=== PATIENT | female | born 1955 | race Caucasian/White ===

== ENCOUNTER 2019-03-05 16:25 | Emergency (ER) | payer SELFPAY ==
[~2019-03-05] VITALS: Ht 157.5 cm; Wt 90.7 kg
[2019-03-05 17:53] LABS: BASOPHILS % (AUTO) 0 % (0-10); EOSINOPHILS # (AUTO) 0.2 10^3/uL (0.0-0.3); EOSINOPHILS % (AUTO) 2 % (0-10); HEMATOCRIT 44 % (35-52); HEMOGLOBIN 14.7 G/DL (11.5-16.0); LYMPHOCYTES # (AUTO) 1.9 X 10^3 (1.0-4.0); LYMPHOCYTES % (AUTO) 22 % (12-44); MEAN CORPUSCULAR HEMOGLOBIN 27 PG (25-34); MEAN CORPUSCULAR HGB CONC 34 G/DL (32-36); MEAN CORPUSCULAR VOLUME 80 FL (80-99); MEAN PLATELET VOLUME 9.6 FL (7.4-10.4); MONOCYTES # (AUTO) 0.8 X 10^3 (0.0-1.0); MONOCYTES % (AUTO) 9 % (0-12); NEUTROPHILS # (AUTO) 5.9 X 10^3 (1.8-7.8); NEUTROPHILS % (AUTO) 67 % (42-75); PLATELET COUNT 321 10^3/uL (130-400); RED CELL DISTRIBUTION WIDTH 14.3 % (10.0-14.5); WHITE BLOOD COUNT 8.8 10^3/uL (4.3-11.0)
[2019-03-05 17:58] LABS: BILIRUBIN,URINE NEGATIVE (NEGATIVE); CLARITY,URINE CLEAR; COLOR,URINE YELLOW; GLUCOSE, URINE (UA) NEGATIVE (NEGATIVE); KETONES,URINE NEGATIVE (NEGATIVE); LEUKOCYTE ESTERASE ,URINE NEGATIVE (NEGATIVE); NITRITE,URINE NEGATIVE (NEGATIVE); PH,URINE 5.5 (5-9); PROTEIN,URINE NEGATIVE (NEGATIVE)
[2019-03-05 18:05] LABS: ALANINE AMINOTRANSFERASE 38 U/L (0-55); ALBUMIN 4.4 GM/DL (3.2-4.5); ALKALINE PHOSPHATASE 71 U/L (40-136); BILIRUBIN,TOTAL 0.9 MG/DL (0.1-1.0); BUN/CREATININE RATIO 11; CALCIUM 9.2 MG/DL (8.5-10.1); CARBON DIOXIDE 21 MMOL/L (21-32); CHLORIDE 107 MMOL/L (98-107); CREATININE SERUM 0.82 MG/DL (0.60-1.30); GFR ESTIMATED > 60; GLUCOSE 105 MG/DL (70-105); LIPASE 18 U/L (8-78); POTASSIUM 3.7 MMOL/L (3.6-5.0); SODIUM 140 MMOL/L (135-145)
--- NOTE | 2019-03-05 18:05 | ED Abdominal Pain ---
General Chief Complaint: Abdominal/GI Problems Stated Complaint: LOW PAIN PAIN; HEARTBURN Nursing Triage Note: PT AMBULATE TO TRIAGE WITH C/O ABD PAIN PAIN STARTING X3 DAYS AGO. PT REPORTS PAIN IN LEFT LOWER QUAD AND RADIATING AROUND LEFT SIDE TO HER LEFT BACK. PT REPORTS N/V AND ACID REFLUX. PT REPORTS RECENT MOVE FROM [facility] AND THAT WHILE THERE HAD A BACTERIAL INFECTION IN HER STOMACH THAT WAS TREATED OVER 2 MONTHS ENDING APPROX 3 MONTHS AGO. Sepsis Screen: No Definite Risk Source of Information: Patient, Family (son) Exam Limitations: Language Barrier (son speaks fluent Nauruan) History of Present Illness Date Seen by Provider: Mar 05, 2019 Time Seen by Provider: 18:05 Initial Comments 63 yo female patient presents with c/o epigastric and LLQ pain x 3 days. LLQ pain radiates around the left flank into the left low back. Also reports reflux, N/V. Recently moved from [facility] to be with family. Reports being treated with antibiotics for a "stomach infection" for 2 months, but is not sure what antibiotics she was on. Antibiotics were completed 3 months ago. Timing/Duration: 3-4 Days, Intermittent Severity/Quality: Burning (epigastric), Sharp (LLQ, left flank and left LB) Activities at Onset: None Modifying Factors: Worsens With Eating (epigastric pain is worse with eating. denies eating spicy or fatty foods.), Worsens With Palpation Allergies and Home Medications Allergies Coded Allergies: No Known Drug Allergies (Unverified , 03/05/19) Home Medications Famotidine 20 Mg Tablet, 20 MG PO BID Prescribed by: ANATOLY HORAN on 03/05/191929 Ondansetron 4 Mg Tab.rapdis, 4 MG PO Q6H PRN for NAUSEA/VOMITING Prescribed by: ANATOLY HORAN on 03/05/191929 Patient Home Medication List Home Medication List Reviewed: Yes Review of Systems Review of Systems Constitutional: No chills, No diaphoresis, No dizziness, No fever, No malaise EENTM: No Symptoms Reported Respiratory: Denies Cough, Denies Orthopnea, Denies Shortness of Air, Denies Wheezing Cardiovascular: Denies Chest Pain, Denies Edema, Denies Irregular Heart Rate, Denies Lightheadedness, Denies Palpitations, Denies Syncope Gastrointestinal: See HPI, Abdomen Distended (epigastric bloating), Abdominal Pain; Denies Blood Streaked Stools; Constipated (chronic constipation); Denies Diarrhea, Denies Difficulty Swallowing; Nausea; Denies Poor Appetite, Denies Poor Fluid Intake, Denies Rectal Bleeding; Vomiting Genitourinary: Denies Burning, Denies Discharge, Denies Frequency; Flank Pain (left flank); Denies Hematuria Musculoskeletal: see HPI, back pain Skin: no symptoms reported Psychiatric/Neurological: No Symptoms Reported Endocrine: No Symptoms Reported All Other Systems Reviewed Negative Unless Noted: Yes (Negative excepted noted.) Past Gaqfbru-Pqgsfo-Rxvvbp Hx Past Med/Social Hx: Reviewed Nursing Past Med/Soc Hx Patient Social History Alcohol Use: Rarely Uses Recreational Drug Use: No Smoking Status: Never a Smoker 2nd Hand Smoke Exposure: No Recent Foreign Travel: Yes (PT RECENTLY MOVED FROM [facility]) Contact w/Someone Who Travel: Yes Recent Infectious Disease Expo: Yes (BACTERIAL INFECTION IN STOMACH APPROX 5 MONTHS AGO WITH [place] LASTING 2 MONTHS) Recent Hopitalizations: No Physical Abuse: No Sexual Abuse: No Mistreated: No Fear: No Seasonal Allergies Seasonal Allergies: No Past Medical History Surgeries: No Respiratory: No Cardiac: Yes Hypotension Neurological: No Genitourinary: No Gastrointestinal: Yes ("stomach infection") Chronic Constipation Musculoskeletal: No Endocrine: No HEENT: No Cancer: No Psychosocial: No Integumentary: No Blood Disorders: No Family Medical History Reviewed Nursing Family Hx No Pertinent Family Hx Physical Exam Vital Signs Vital Signs - First Documented 03/05/19 03/05/19 16:32 19:45 Temp 37.4 Pulse 86 Resp 17 B/P (MAP) 164/104 (124) Pulse Ox 98 O2 Delivery Room Air Capillary Refill : Less Than 3 Seconds Height/Weight/BMI Height: '" Weight: lbs. oz. kg; 36.00 BMI Method: General Appearance: WD/WN, no apparent distress HEENT: PERRL/EOMI, pharynx normal Neck: supple, normal inspection Respiratory: lungs clear, normal breath sounds, no respiratory distress, no accessory muscle use Cardiovascular: normal peripheral pulses, regular rate, rhythm, no edema, no gallop, no murmur Peripheral Pulses: 2+ Dorsalis Pedis (R), 2+ Left Dors-Pedis (L), 2+ Radial Pulses (R), 2+ Radial Pulses (L) Gastrointestinal: normal bowel sounds, soft, no organomegaly, no pulsatile mass; No distended; guarding (mild guarding to the epigastrum and LLQ); No rebound; tenderness (epigastric, LLQ, and left flank); No mass Extremities: no pedal edema, no calf tenderness, normal capillary refill Back: normal inspection, no vertebral tenderness; No CVA tenderness (R); CVA tenderness (L) Neurologic/Psychiatric: alert, normal mood/affect, oriented x 3 Skin: normal color, warm/dry Progress/Results/Core Measures Results/Orders Lab Results Laboratory Tests Test 03/05/19 17:40 03/05/19 17:50 Range/Units White Blood Count 8.8 4.3-11.0 10^3/uL Red Blood Count 5.44 4.35-5.85 10^6/uL Hemoglobin 14.7 11.5-16.0 G/DL Hematocrit 44 35-52 % Mean Corpuscular Volume 80 80-99 FL Mean Corpuscular Hemoglobin 27 25-34 PG Mean Corpuscular Hemoglobin Concent 34 32-36 G/DL Red Cell Distribution Width 14.3 10.0-14.5 % Platelet Count 321 130-400 10^3/uL Mean Platelet Volume 9.6 7.4-10.4 FL Neutrophils (%) (Auto) 67 42-75 % Lymphocytes (%) (Auto) 22 12-44 % Monocytes (%) (Auto) 9 0-12 % Eosinophils (%) (Auto) 2 0-10 % Basophils (%) (Auto) 0 0-10 % Neutrophils # (Auto) 5.9 1.8-7.8 X 10^3 Lymphocytes # (Auto) 1.9 1.0-4.0 X 10^3 Monocytes # (Auto) 0.8 0.0-1.0 X 10^3 Eosinophils # (Auto) 0.2 0.0-0.3 10^3/uL Basophils # (Auto) 0.0 0.0-0.1 10^3/uL Sodium Level 140 135-145 MMOL/L Potassium Level 3.7 3.6-5.0 MMOL/L Chloride Level 107 98-107 MMOL/L Carbon Dioxide Level 21 21-32 MMOL/L Anion Gap 12 5-14 MMOL/L Blood Urea Nitrogen 9 7-18 MG/DL Creatinine 0.82 0.60-1.30 MG/DL Estimat Glomerular Filtration Rate > 60 BUN/Creatinine Ratio 11 Glucose Level 105 70-105 MG/DL Calcium Level 9.2 8.5-10.1 MG/DL Corrected Calcium 8.9 8.5-10.1 MG/DL Total Bilirubin 0.9 0.1-1.0 MG/DL Aspartate Amino Transf (AST/SGOT) 42 H 5-34 U/L Alanine Aminotransferase (ALT/SGPT) 38 0-55 U/L Alkaline Phosphatase 71 40-136 U/L Total Protein 8.0 6.4-8.2 GM/DL Albumin 4.4 3.2-4.5 GM/DL Lipase 18 8-78 U/L Urine Color YELLOW Urine Clarity CLEAR Urine pH 5.5 5-9 Urine Specific Butler >=1.030 1.016-1.022 Urine Protein NEGATIVE NEGATIVE Urine Glucose (UA) NEGATIVE NEGATIVE Urine Ketones NEGATIVE NEGATIVE Urine Nitrite NEGATIVE NEGATIVE Urine Bilirubin NEGATIVE NEGATIVE Urine Urobilinogen 0.2 < = 1.0 MG/DL Urine Leukocyte Esterase NEGATIVE NEGATIVE Urine RBC (Auto) TRACE-I NEGATIVE Urine RBC NONE /HPF Urine WBC NONE /HPF Urine Crystals NONE /LPF Urine Bacteria NEGATIVE /HPF Urine Casts NONE /LPF Urine Mucus LARGE H /LPF Urine Culture Indicated NO My Orders Orders - ANATOLY HORAN Ed Iv/Invasive Line Start (03/05/19 17:44) Cbc With Automated Diff (03/05/19 17:44) Comprehensive Metabolic Panel (03/05/19 17:44) Lipase (03/05/19 17:44) Ua Culture If Indicated (03/05/19 17:44) Ct Abd/Pelvis Wo(Kidney Stone) (03/05/19 18:19) Ondansetron Injection (Zofran Injectio (03/05/19 18:30) Ketorolac Injection (Toradol Injection) (03/05/19 18:19) Ns Iv 1000 Ml (Sodium Chloride 0.9%) (03/05/19 18:19) Famotidine Injection (Pepcid Injection) (03/05/19 18:21) Medications Given in ED Current Medications Medications Dose Ordered Sig/Nahum Route Start Time Stop Time Status Last Admin Dose Admin Ondansetron HCl 4 mg ONCE ONCE IVP 03/05/19 18:30 03/05/19 18:31 DC 03/05/19 18:26 4 MG Sodium Chloride 1,000 ml @ 0 mls/hr Q0M ONCE IV 03/05/19 18:19 03/05/19 18:21 DC 03/05/19 18:25 1,000 MLS/HR Vital Signs/I&O 03/05/19 03/05/19 16:32 19:45 Temp 37.4 Pulse 86 88 Resp 17 18 B/P (MAP) 164/104 (124) 121/56 Pulse Ox 98 O2 Delivery Room Air Room Air Blood Pressure Mean: 124 Diagnostic Imaging Diagonstic Imaging: CT Plain Films/CT/US/NM/MRI: abdomen, pelvis Comments Date of Exam:03/05/19 CT ABD/PELVIS WO(KIDNEY STONE) PROCEDURE: CT urinary tract, rule out kidney stone. TECHNIQUE: Multiple contiguous axial images were obtained through the abdomen and pelvis without the use of intravenous contrast. Auto Exposure Controls were utilized during the CT exam to meet ALARA standards for radiation dose reduction. INDICATION: Abdominal pain. Nausea and vomiting. Reflux. COMPARISON: None. FINDINGS: Included portions of the lung bases show 4 mm micronodule within the posterior left base (image 23, series 2). CT ABDOMEN: Normal appendix is identified. Small bowel loops are nondistended. There is mild hiatal hernia. The kidneys, adrenal glands, spleen and pancreas have an unremarkable noncontrast CT appearance. Liver is mildly diffusely hypodense suggestive of background hepatic steatosis. Otherwise, liver has an unremarkable noncontrast CT appearance as well. There is no loculated fluid collection, free fluid or free air within the abdomen. No abnormal mesenteric or retroperitoneal adenopathy is seen. Osseous structures show no acute abnormality. CT PELVIS: Urinary bladder is unopacified. No calculi are seen within the bladder. There is no loculated fluid collection, free fluid or free air within the pelvis. No abnormal lymph nodes are identified. Osseous structures show no acute abnormality. IMPRESSION: 1. No acute abnormality is seen within the abdomen or pelvis. 2. Probable mild hepatic steatosis. 3. Small micronodule within the left lung base. If patient is in a high-risk category, such as history of smoking, one-year follow-up is advised to ensure stability. 4. Small hiatal hernia. Dictated on workstation # [id number] Reviewed: Reviewed by Me (radiology report reviewed by me) Departure Communication (Admissions) Patient seen and evaluated. Labs and CT abdomen/pelvis obtained. Patient was given Zofran, IV fluids, toradol, and Pepcid with improvement in symptoms. Plan for discharge to home with follow-up as an outpatient with the provider of her choice to establish care and for recheck. I did discuss the lung nodule f indings on CT scan and instructed her to discuss this with her primary care as she will need to schedule a repeat scan as an outpatient to further evaluate this nodule. Patient and son verbalized understanding. Impression Primary Impression: Gastritis Qualified Codes: K29.00 - Acute gastritis without bleeding Additional Impression: Hiatal hernia Disposition: HOME, SELF-CARE Condition: Improved Departure-Patient Inst. Decision time for Depature: 19:28 Referrals: NO,LOCAL PHYSICIAN (PCP/Family) Primary Care Physician Patient Instructions: Acute Abdomen (Belly Pain), Adult (DC), Gastritis (DC) Add. Discharge Instructions: All discharge instructions reviewed with patient and/or family. Voiced understanding. Medications as instructed. Tylenol [id number] as directed for pain. No spicy foods, fatty foods, carbonated beverages, caffeinated beverages, smoking, secondhand smoke, alcohol, or NSAIDs (motrin, aleve, ibuprofen, naproxen, or aspirin). No eating within 2 hours of lying down. Follow-up with the family practitioner of your choice to establish care and for recheck within the next 1-2 weeks. Return to the emergency department for wors ened symptoms, fever, vomiting blood, rectal bleeding, black stools, abdominal swelling, or any other concerns. Scripts Ondansetron (Ondansetron Odt) 4 Mg Tab.rapdis 4 MG PO Q6H PRN for NAUSEA/VOMITING, #8 TAB 0 Refills Prov: ANATOLY HORAN 03/05/19 Famotidine (Pepcid) 20 Mg Tablet 20 MG PO BID, #30 TAB 0 Refills Prov: ANATOLY HORAN 03/05/19 Work/School Note: Local Medical Staff Listing ANATOLY HORAN Mar 05, 2019 18:05
[2019-03-05 18:06] LABS: BACTERIA,URINE NEGATIVE /HPF
[2019-03-05] MEDS ORDERED: KETOROLAC 30 MG/ML VIAL IVP STA (18:19)
[2019-03-05] MEDS ORDERED: NS IV 1000 ML 1,000 ML IV ONE (18:19)
[2019-03-05] MEDS ORDERED: FAMOTIDINE 20MG/2ML IV (PEPCID) IV STA (18:21)
[2019-03-05] MEDS ORDERED: ONDANSETRON 4 MG/2 ML (SDV) Z0FRAN IVP ONE (18:30)
--- NOTE | 2019-03-05 19:12 | Diagnostic Imaging Report ---
PROCEDURE: CT urinary tract, rule out kidney stone. TECHNIQUE: Multiple contiguous axial images were obtained through the abdomen and pelvis without the use of intravenous contrast. Auto Exposure Controls were utilized during the CT exam to meet ALARA standards for radiation dose reduction. INDICATION: Abdominal pain. Nausea and vomiting. Reflux. COMPARISON: None. FINDINGS: Included portions of the lung bases show 4 mm micronodule within the posterior left base (image 23, series 2). CT ABDOMEN: Normal appendix is identified. Small bowel loops are nondistended. There is mild hiatal hernia. The kidneys, adrenal glands, spleen and pancreas have an unremarkable noncontrast CT appearance. Liver is mildly diffusely hypodense suggestive of background hepatic steatosis. Otherwise, liver has an unremarkable noncontrast CT appearance as well. There is no loculated fluid collection, free fluid or free air within the abdomen. No abnormal mesenteric or retroperitoneal adenopathy is seen. Osseous structures show no acute abnormality. CT PELVIS: Urinary bladder is unopacified. No calculi are seen within the bladder. There is no loculated fluid collection, free fluid or free air within the pelvis. No abnormal lymph nodes are identified. Osseous structures show no acute abnormality. IMPRESSION: 1. No acute abnormality is seen within the abdomen or pelvis. 2. Probable mild hepatic steatosis. 3. Small micronodule within the left lung base. If patient is in a high-risk category, such as history of smoking, one-year follow-up is advised to ensure stability. 4. Small hiatal hernia. Dictated by: Dictated on workstation # [id number]
[2019-03-05] MEDS ORDERED: ONDA4TAB11 PO (19:30)
[2019-03-05] MEDS ORDERED: FAMO-119 PO (19:30)
[2019-03-05 19:45] VITALS: BP 121/56
== END 2019-03-05 19:45 | disposition home or self-care (01) ==
LOC: ER 16:28
DX: K29.70 Gastritis, unspecified, without bleeding (principal); K44.9 Diaphragmatic hernia without obstruction or gangrene
CPT/HCPCS: 36415; 74176; 80053; 81000; 83690; 85025

== ENCOUNTER 2022-04-09 20:23 | Emergency (ER) | payer SELFPAY ==
[~2022-04-09] VITALS: Ht 152 cm; Wt 90.7 kg
[~2022-04-09 20:23] MED LIST: FAMO-119 PO; ONDA4TAB11 PO
--- NOTE | 2022-04-09 20:35 | ED General ---
General Stated Complaint: HIGH BLOOD PRESSURE, TIRED History of Present Illness Date Seen by Provider: Apr 09, 2022 Time Seen by Provider: 20:35 Initial Comments 67-year-old female presents with some generalized malaise, dizzy, she is fatigued today. She has had 3 episodes of vomiting. Patient has a history of high blood pressure and reports that when she is checked her blood pressure at home has been elevated. Patient denies any chest pain, headache, shortness of breath, diarrhea, fever or known ill contacts. Allergies and Home Medications Allergies Coded Allergies: No Known Drug Allergies (Unverified , 03/05/19) Patient Home Medication List Home Medication List Reviewed: Yes Famotidine (Pepcid) 20 Mg Tablet, 20 MG PO BID Prescribed by: ANATOLY HORAN on 03/05/191929 Ondansetron (Ondansetron Odt) 4 Mg Tab.rapdis, 4 MG PO Q6H PRN for NAUSEA/VOMITING Prescribed by: ANATOLY HORAN on 03/05/191929 Ondansetron (Ondansetron Odt) 4 Mg Tab.rapdis, 4 MG PO Q6H PRN for NAUSEA/VOM ITING Prescribed by: FRANCIA GIBBONS on 04/09/222202 Review of Systems Review of Systems Constitutional: see HPI; No chills; dizziness; No fever EENTM: no symptoms reported Respiratory: no symptoms reported Cardiovascular: no symptoms reported Gastrointestinal: abdominal pain (Epigastric), nausea, vomiting Genitourinary: no symptoms reported Musculoskeletal: no symptoms reported Skin: no symptoms reported Psychiatric/Neurological: No Symptoms Reported Hematologic/Lymphatic: No Symptoms Reported Immunological/Allergic: no symptoms reported Past Haabzsx-Ezkxkf-Lubkjr Hx Seasonal Allergies Seasonal Allergies: No Past Medical History Surgeries: No Respiratory: No Cardiac: Yes Hypotension Neurological: No Genitourinary: No Gastrointestinal: Yes ("stomach infection") Chronic Constipation Musculoskeletal: No Endocrine: No HEENT: No Cancer: No Psychosocial: No Integumentary: No Blood Disorders: No Family Medical History No Pertinent Family Hx Physical Exam Vital Signs Vital Signs - First Documented 04/09/22 20:28 Pulse 70 Resp 20 B/P (MAP) 198/104 (135) Pulse Ox 97 O2 Delivery Room Air Capillary Refill : Height, Weight, BMI Height: '" Weight: lbs. oz. kg; 36.00 BMI Method: General Appearance: No Apparent Distress, WD/WN Eyes: Bilateral Eye Normal Inspection, Bilateral Eye PERRL HEENT: Moist Mucous Membranes Neck: Non Tender, Supple Respiratory: Lungs Clear, Normal Breath Sounds Cardiovascular: Regular Rate, Rhythm Gastrointestinal: Soft, Tenderness (epigastric ) Extremity: Normal Capillary Refill, Normal Inspection, Normal Range of Motion Neurologic/Psychiatric: Alert, Oriented x3, No Motor/Sensory Deficits Skin: Normal Color, Warm/Dry Progress/Results/Core Measures Suspected Sepsis SIRS Temperature: Pulse: Respiratory Rate: Laboratory Tests 04/09/22 20:39: White Blood Count 8.3 Blood Pressure / Mean: Laboratory Tests 04/09/22 20:39: Creatinine 0.75, Platelet Count 289, Total Bilirubin 0.5 Results/Orders Lab Results Laboratory Tests Test 04/09/22 20:34 04/09/22 20:39 Range/Units Influenza Type A (RT-PCR) Not Detected Not Detecte Influenza Type B (RT-PCR) Not Detected Not Detecte SARS-CoV-2 RNA (RT-PCR) Not Detected Not Detecte White Blood Count 8.3 4.3-11.0 10^3/uL Red Blood Count 5.24 H 3.80-5.11 10^6/uL Hemoglobin 14.4 11.5-16.0 g/dL Hematocrit 42 35-52 % Mean Corpuscular Volume 81 80-99 fL Mean Corpuscular Hemoglobin 28 25-34 pg Mean Corpuscular Hemoglobin Concent 34 32-36 g/dL Red Cell Distribution Width 13.3 10.0-14.5 % Platelet Count 289 130-400 10^3/uL Mean Platelet Volume 9.4 9.0-12.2 fL Immature Granulocyte % (Auto) 0 % Neutrophils (%) (Auto) 49 42-75 % Lymphocytes (%) (Auto) 37 12-44 % Monocytes (%) (Auto) 8 0-12 % Eosinophils (%) (Auto) 5 0-10 % Basophils (%) (Auto) 1 0-10 % Neutrophils # (Auto) 4.1 1.8-7.8 10^3/uL Lymphocytes # (Auto) 3.1 1.0-4.0 10^3/uL Monocytes # (Auto) 0.7 0.0-1.0 10^3/uL Eosinophils # (Auto) 0.4 H 0.0-0.3 10^3/uL Basophils # (Auto) 0.1 0.0-0.1 10^3/uL Immature Granulocyte # (Auto) 0.0 0.0-0.1 10^3/uL Sodium Level 141 135-145 MMOL/L Potassium Level 3.1 L 3.6-5.0 MMOL/L Chloride Level 106 98-107 MMOL/L Carbon Dioxide Level 23 21-32 MMOL/L Anion Gap 12 5-14 MMOL/L Blood Urea Nitrogen 11 7-18 MG/DL Creatinine 0.75 0.60-1.30 MG/DL Estimat Glomerular Filtration Rate 88 BUN/Creatinine Ratio 15 Glucose Level 127 H 70-105 MG/DL Calcium Level 9.8 8.5-10.1 MG/DL Corrected Calcium 9.7 8.5-10.1 MG/DL Magnesium Level 2.3 1.6-2.4 MG/DL Total Bilirubin 0.5 0.1-1.0 MG/DL Aspartate Amino Transf (AST/SGOT) 30 5-34 U/L Alanine Aminotransferase (ALT/SGPT) 29 0-55 U/L Alkaline Phosphatase 82 40-136 U/L Troponin I < 0.028 <0.028 NG/ML C-Reactive Protein High Sensitivity 0.92 H 0.00-0.50 MG/DL Total Protein 7.8 6.4-8.2 GM/DL Albumin 4.1 3.2-4.5 GM/DL Lipase 27 8-78 U/L My Orders Orders - GIBBONS,FRANCIA L DO Cbc With Automated Diff (04/09/22 20:39) Comprehensive Metabolic Panel (04/09/22 20:39) Hs C Reactive Protein (04/09/22 20:39) Lipase (04/09/22 20:39) Magnesium (04/09/22 20:39) Troponin I Milagros (04/09/22 20:39) Influenza A And B By Pcr (04/09/22 20:39) Covid 19 Inhouse Test (04/09/22 20:39) Ondansetron Injection (Zofran Injectio (04/09/22 20:45) Ns Iv 1000 Ml (Sodium Chloride 0.9%) (04/09/22 20:39) Famotidine Injection (Pepcid Injection) (04/09/22 20:39) Ekg Tracing (04/09/22 20:39) Monitor-Rhythm Ecg Trace Only (04/09/22 20:39) Medications Given in ED Current Medications Medications Dose Ordered Sig/Nahum Route Start Time Stop Time Status Last Admin Dose Admin Ondansetron HCl 4 mg ONCE ONCE IVP 04/09/22 20:45 04/09/22 20:46 DC 04/09/22 20:57 4 MG Vital Signs/I&O 04/09/22 04/09/22 20:28 22:15 Pulse 70 63 Resp 20 B/P (MAP) 198/104 (135) 137/70 Pulse Ox 97 96 O2 Delivery Room Air Room Air Capillary Refill : Progress Note : Progress Note Patient was concerned about her blood pressure when she came in and this was monitored at her stay and had no concerning readings. Patient was feeling better following the Zofran and IV fluids. Patients labs were reviewed and showed no significant abnormalities. I will prescribe her some Zofran to help with the nausea and vomiting. I discussed with her that is likely a viral gastroenteritis. Did discuss return precautions with her. History was obtained from both patient along with family members. Patient is not on Guinean speaking and her family members were interpreting for her. Patient is care could be affected due to language barrier and cultural barrier and understanding. I did have a long discussion about return precautions. She is stable upon discharge ECG Initial ECG Impression Date: Apr 09, 2022 Initial ECG Impression Time: 21:02 Initial ECG Rate: 62 Initial ECG Rhythm: Normal Sinus Initial ECG Intervals: Normal Comment probable lvh, no other acute changes Departure Impression Primary Impression: Gastroenteritis Disposition: 01 HOME, SELF-CARE Condition: Stable Departure-Patient Inst. Referrals: [facility] (PCP/Family) Primary Care Physician Patient Instructions: Viral Gastroenteritis, Adult (DC) Add. Discharge Instructions: Drink plenty of fluids, you may use a bland diet and advance as tolerated. Return to the ER with any concerns of worsening symptoms Scripts Ondansetron (Ondansetron Odt) 4 Mg Tab.rapdis 4 MG PO Q6H PRN for NAUSEA/VOMITING, #20 TAB 0 Refills Prov: GIBBONSJOLANTAR L DO 04/09/22 GIBBONSJOLANTAR L DO Apr 09, 2022 20:35
[2022-04-09] MEDS ORDERED: FAMOTIDINE 20MG/2ML IV (PEPCID) IV STA (20:39)
[2022-04-09] MEDS ORDERED: NS IV 1000 ML 1,000 ML IV STA (20:39)
[2022-04-09] MEDS ORDERED: ONDANSETRON 4 MG/2 ML (SDV) Z0FRAN IVP ONE (20:45)
[2022-04-09 20:49] LABS: BASOPHILS # (AUTO) 0.1 10^3/uL (0.0-0.1); BASOPHILS % (AUTO) 1 % (0-10); EOSINOPHILS # (AUTO) 0.4 10^3/uL (0.0-0.3); EOSINOPHILS % (AUTO) 5 % (0-10); HEMATOCRIT 42 % (35-52); HEMOGLOBIN 14.4 g/dL (11.5-16.0); LYMPHOCYTES # (AUTO) 3.1 10^3/uL (1.0-4.0); LYMPHOCYTES % (AUTO) 37 % (12-44); MEAN CORPUSCULAR HEMOGLOBIN 28 pg (25-34); MEAN CORPUSCULAR HGB CONC 34 g/dL (32-36); MEAN CORPUSCULAR VOLUME 81 fL (80-99); MEAN PLATELET VOLUME 9.4 fL (9.0-12.2); MONOCYTES # (AUTO) 0.7 10^3/uL (0.0-1.0); MONOCYTES % (AUTO) 8 % (0-12); NEUTROPHILS # (AUTO) 4.1 10^3/uL (1.8-7.8); NEUTROPHILS % (AUTO) 49 % (42-75); PLATELET COUNT 289 10^3/uL (130-400); WHITE BLOOD COUNT 8.3 10^3/uL (4.3-11.0)
[2022-04-09 21:08] LABS: ALANINE AMINOTRANSFERASE 29 U/L (0-55); ALBUMIN 4.1 GM/DL (3.2-4.5); ALKALINE PHOSPHATASE 82 U/L (40-136); BILIRUBIN,TOTAL 0.5 MG/DL (0.1-1.0); BUN/CREATININE RATIO 15; CALCIUM 9.8 MG/DL (8.5-10.1); CARBON DIOXIDE 23 MMOL/L (21-32); CHLORIDE 106 MMOL/L (98-107); CREATININE SERUM 0.75 MG/DL (0.60-1.30); GFR ESTIMATED 88; GLUCOSE 127 MG/DL (70-105); LIPASE 27 U/L (8-78); MAGNESIUM 2.3 MG/DL (1.6-2.4); POTASSIUM 3.1 MMOL/L (3.6-5.0); SODIUM 141 MMOL/L (135-145); TOTAL PROTEIN 7.8 GM/DL (6.4-8.2)
[2022-04-09] MEDS ORDERED: ONDA4TAB11 PO (22:03)
[2022-04-09 22:15] VITALS: BP 137/70
== END 2022-04-09 22:18 | disposition home or self-care (01) ==
LOC: EDUNIT# 20:23 → ER 20:24
DX: K52.9 Noninfective gastroenteritis and colitis, unspecified (principal); Z87.19 Personal history of other diseases of the digestive system; Z20.822 Contact with and (suspected) exposure to COVID-19
CPT/HCPCS: 36415; 80053; 83690; 83735; 84484; 85025; 86141; 87636; 93005; 93041